=== PATIENT | female | born 1975 | race African-American/Black ===

== ENCOUNTER 2019-06-07 09:32 | Emergency (ER) | payer OTHER ==
[~2019-06-07] VITALS: Ht 175.3 cm; Wt 102.1 kg
[2019-06-07] MEDS ORDERED: BENAZEPRIL HCL20 MG ORAL (09:36)
[2019-06-07] MEDS ORDERED: VENTOLIN HFA18 GM INH (09:36)
[2019-06-07] MEDS ORDERED: METFORMIN HCL750 MG ORAL (09:36)
--- NOTE | 2019-06-07 09:37 | NUR ---
ED Nurse Note: Patient brought in by ambulance RA [id number] from home, patient reports headache since this morning, patient c/o nausea and vomiting. patient reports hx of dm, htn, and asthma. patient is alert awake x4 ambulatory, breathing unlabored and even, patient changed into a hospital gown, placed on a monitor.
--- NOTE | 2019-06-07 09:40 | NUR ---
ED Nurse Note: patient reports she woke up from headache all of a sudden today around 4am. Dr. Lopes by the bedside.
[2019-06-07] MEDS ORDERED: DiphenhydrAMINE 50mg/ml Inj IVP ONE (09:45)
[2019-06-07] MEDS ORDERED: Metoclopramide 10mg/2ml Inj IVP ONE (09:45)
--- NOTE | 2019-06-07 10:00 | NUR ---
ED Nurse Note: head ct notified to radiology.
--- NOTE | 2019-06-07 10:05 | NUR ---
ED Nurse Note: patient reports she cannot provide urine sample at this time.
[2019-06-07 10:06] VITALS: BP 153/103
[2019-06-07 10:11] LABS: BASOPHILS % (AUTO) 0.7 % (0.0-2.0); EOSINOPHILS % (AUTO) 0.6 % (0.0-3.0); HEMATOCRIT 43.8 % (37.0-47.0); HEMOGLOBIN 14.1 G/DL (12.0-16.0); LYMPHOCYTES % (AUTO) 20.9 % (20.0-45.0); MEAN CORPUSCULAR VOLUME 84 FL (80-99); MONOCYTES % (AUTO) 7.4 % (1.0-10.0); NEUTROPHILS % (AUTO) 70.4 % (45.0-75.0); PLATELET COUNT 140 K/UL (150-450); RED CELL DISTRIBUTION WIDTH 14.1 % (11.6-14.8); WHITE BLOOD COUNT 8.8 K/UL (4.8-10.8)
[2019-06-07 10:23] LABS: ANION GAP 13 mmol/L (5-15); BLOOD UREA NITROGEN 5 mg/dL (7-18); CALCIUM 9.3 MG/DL (8.5-10.1); CARBON DIOXIDE 23 MMOL/L (21-32); CHLORIDE 104 MMOL/L (98-107); CREATININE 0.9 MG/DL (0.55-1.30); POTASSIUM 4.1 MMOL/L (3.5-5.1); SODIUM 140 MMOL/L (136-145)
[2019-06-07 10:49] LABS: ALANINE AMINOTRANSFERASE 40 U/L (12-78); ALBUMIN 3.5 G/DL (3.4-5.0); ALBUMIN/GLOBULIN RATIO 0.9 (1.0-2.7); ALKALINE PHOSPHATASE 100 U/L (46-116); ASPARTATE AMINO TRANSFERASE 34 U/L (15-37); BILIRUBIN,TOTAL 0.4 MG/DL (0.2-1.0)
--- NOTE | 2019-06-07 11:13 | Diagnostic Imaging Report ---
EXAM: CT Head Without Intravenous Contrast CLINICAL HISTORY: PAIN TECHNIQUE: Axial computed tomography images of the head brain without intravenous contrast. Coronal reformatted images were reviewed. CTDI is 60 mGy and DLP is 1274.10 mGy-cm. One or more of the following dose reduction techniques were used: automated exposure control, adjustment of the mA and or kV according to patient size, use of iterative reconstruction technique. COMPARISON: No relevant prior studies available. FINDINGS: Brain: Unremarkable. No evidence of acute intracranial hemorrhage. No significant white matter disease. No edema. No mass effect or midline shift. Ventricles: Unremarkable. No ventriculomegaly. Bones joints: See below. Soft tissues: Unremarkable. Sinuses: Mucosal opacification of the right maxillary sinus with inspissated hyperdense secretions and associated chronic osseous thickening of the sinus case, suggesting chronic sinusitis. Erosive versus post traumatic changes in the right maxillary sinus roof right inferior orbital wall. These findings are best seen on the coronal images. Mastoid air cells: Unremarkable as visualized. No mastoid effusion. IMPRESSION: 1. Mucosal opacification of the right maxillary sinus with inspissated hyperdense secretions and associated osseous thickening of the sinus case, suggesting chronic sinusitis. 2. Erosive versus post traumatic changes in the right maxillary sinus roof right inferior orbital wall.
[2019-06-07] MEDS ORDERED: cefTRIAXone 2 GM in NS 55 ML IVPB ONE (11:30)
[2019-06-07 11:39] VITALS: BP 142/95
[2019-06-07 12:27] LABS: APPEARANCE,URINE CLEAR; BILIRUBIN, URINE NEGATIVE (NEGATIVE); COLOR,URINE PALE YELLOW; GLUCOSE, URINE (UA) NEGATIVE (NEGATIVE); KETONES,URINE NEGATIVE (NEGATIVE); LEUKOCYTE ESTERASE ,URINE 1+ (NEGATIVE); NITRITE,URINE NEGATIVE (NEGATIVE); PH,URINE 6 (4.5-8.0); PROTEIN,URINE 1+ (NEGATIVE); UROBILINOGEN,URINE NORMAL MG/DL (0.0-1.0)
[2019-06-07] MEDS ORDERED: BENADRYL25 MG ORAL (13:02)
[2019-06-07] MEDS ORDERED: CLARITHROMYCIN500 MG PO (13:02)
[2019-06-07 13:15] VITALS: BP 142/95
--- NOTE | 2019-06-07 13:15 | NUR ---
ER DISCHARGE NOTE: Patient is cleared to be discharged per ERMD DR HUBER, pt is aox4, on room air, with stable vital signs. pt was given dc and prescription instructions, pt was able to verbalize understanding, pt id band and iv site removed without complications. pt is able to ambulate with steady gait. pt took all belongings.
--- NOTE | 2019-06-07 15:06 | Emergency Room Report ---
History of Present Illness General Chief Complaint: Headache Source: Patient Present Illness Allergies: Coded Allergies: No Known Allergies (Unverified , 06/07/19) Nursing Documentation-PMH Hx Hypertension: Yes Hx Asthma: Yes Hx Diabetes: Yes Physical Exam Vital Signs Date Time Temp Pulse Resp B/P (MAP) Pulse Ox O2 Delivery O2 Flow Rate FiO2 06/07/19 09:28 98.4 99 18 145/109 (121) 98 Room Air Medical Decision Making Diagnostic Impression: Primary Impression: Sinusitis Labs Test 06/07/19 09:57 06/07/19 11:48 White Blood Count 8.8 K/UL (4.8-10.8) Red Blood Count 5.20 M/UL (4.20-5.40) Hemoglobin 14.1 G/DL (12.0-16.0) Hematocrit 43.8 % (37.0-47.0) Mean Corpuscular Volume 84 FL (80-99) Mean Corpuscular Hemoglobin 27.1 PG (27.0-31.0) Mean Corpuscular Hemoglobin Concent 32.2 G/DL (32.0-36.0) Red Cell Distribution Width 14.1 % (11.6-14.8) Platelet Count 140 K/UL (150-450) Mean Platelet Volume 9.0 FL (6.5-10.1) Neutrophils (%) (Auto) 70.4 % (45.0-75.0) Lymphocytes (%) (Auto) 20.9 % (20.0-45.0) Monocytes (%) (Auto) 7.4 % (1.0-10.0) Eosinophils (%) (Auto) 0.6 % (0.0-3.0) Basophils (%) (Auto) 0.7 % (0.0-2.0) Prothrombin Time 10.3 SEC (9.30-11.50) Prothromb Time International Ratio 1.0 (0.9-1.1) Activated Partial Thromboplast Time 27 SEC (23-33) Sodium Level 140 MMOL/L (136-145) Potassium Level 4.1 MMOL/L (3.5-5.1) Chloride Level 104 MMOL/L (98-107) Carbon Dioxide Level 23 MMOL/L (21-32) Anion Gap 13 mmol/L (5-15) Blood Urea Nitrogen 5 mg/dL (7-18) Creatinine 0.9 MG/DL (0.55-1.30) Estimat Glomerular Filtration Rate > 60 mL/min (>60) Glucose Level 182 MG/DL (74-106) Calcium Level 9.3 MG/DL (8.5-10.1) Total Bilirubin 0.4 MG/DL (0.2-1.0) Aspartate Amino Transf (AST/SGOT) 34 U/L (15-37) Alanine Aminotransferase (ALT/SGPT) 40 U/L (12-78) Alkaline Phosphatase 100 U/L (46-116) Troponin I 0.000 ng/mL (0.000-0.056) Total Protein 7.6 G/DL (6.4-8.2) Albumin 3.5 G/DL (3.4-5.0) Globulin 4.1 g/dL Albumin/Globulin Ratio 0.9 (1.0-2.7) Thyroid Stimulating Hormone (TSH) 1.000 uiU/mL (0.358-3.740) Urine Color Pale yellow Urine Appearance Clear Urine pH 6 (4.5-8.0) Urine Specific [place] 1.010 (1.005-1.035) Urine Protein 1+ (NEGATIVE) Urine Glucose (UA) Negative (NEGATIVE) Urine Ketones Negative (NEGATIVE) Urine Blood 4+ (NEGATIVE) Urine Nitrite Negative (NEGATIVE) Urine Bilirubin Negative (NEGATIVE) Urine Urobilinogen Normal MG/DL (0.0-1.0) Urine Leukocyte Esterase 1+ (NEGATIVE) Urine RBC 2-4 /HPF (0 - 2) Urine WBC 0-2 /HPF (0 - 2) Urine Squamous Epithelial Cells Moderate /LPF (NONE/OCC) Urine Bacteria Few /HPF (NONE) Urine HCG, Qualitative Negative (NEGATIVE) Last Vital Signs Date Time Temp Pulse Resp B/P (MAP) Pulse Ox O2 Delivery O2 Flow Rate FiO2 06/07/19 13:15 97.7 95 17 142/95 100 Room Air Disposition: HOME, SELF-CARE Condition: Stable Scripts Diphenhydramine Hcl* (BENADRYL*) 25 Mg Capsule 25 MG ORAL Q6H PRN for Itching, #30 CAP Prov: Roe Lopes MD 06/07/19 Clarithromycin* (CLARITHROMYCIN*) 500 Mg Tablet 500 MG PO Q12HR, #20 TAB Prov: Roe Lopes MD 06/07/19 Patient Instructions: Sinusitis, Adult Roe Lopes MD Jun 07, 2019 15:06
== END 2019-06-07 13:15 | disposition home or self-care (01) ==
LOC: EDBD 09:32 → EMR 09:45
DX: J32.9 Chronic sinusitis, unspecified (principal); I10 Essential (primary) hypertension; E11.9 Type 2 diabetes mellitus without complications; J45.909 Unspecified asthma, uncomplicated
CPT/HCPCS: 36415; 70450; 80053; 81001; 81025; 82962; 84443; 84484; 85025; 85610; 85730; 96365; 96375; J0696; J1200; J2765; Z7502; 99284